=== PATIENT | female | born 1985 | race Caucasian/White ===

== ENCOUNTER 2022-05-23 19:37 | Emergency (ER) | payer MEDICAID, SELFPAY ==
[2022-05-23 19:53] VITALS: BP 119/71; PULSE 80; RESP 18; TEMP 36.7; O2SAT 99; BMI 22.4
--- NOTE | 2022-05-23 20:04 | XR_ITS ---
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 Views: 3 or more views. COMPARISON: No relevant prior studies available. FINDINGS: Bones/joints: Small plantar calcaneal spur. No fractures. No blastic or lytic lesions. The ankle mortise joint is well maintained. No joint effusion. The visualized hindfoot and midfoot are grossly well aligned. No hindfoot coalition. Soft tissues: No periostitis or osteolysis. Mild circumferential soft tissue swelling around the ankle. No radiopaque foreign bodies. IMPRESSION: 1. No osseous injuries. 2. Mild circumferential soft tissue swelling around the ankle. 3. Small plantar calcaneal spur.
--- NOTE | 2022-05-23 20:04 | XR_ITS ---
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 Views: 3 or more views. COMPARISON: CR XR ANKLE LT MIN 3V 05/23/2022 8:07 PM FINDINGS: Bones/joints: Normal variant bipartite medial sesamoid at the 1st MTP joint incidentally noted. Small plantar calcaneal spur. No fractures. Normal alignment is maintained in the midfoot, hindfoot, and forefoot. Joint spaces are well-maintained. No blastic or lytic lesions. No gross ankle joint effusion. No hindfoot coalition. Soft tissues: No periostitis or osteolysis. No gross soft tissue abnormalities. No radiopaque foreign bodies. Other findings: Normal mineralization. IMPRESSION: No acute findings.
--- NOTE | 2022-05-23 20:12 | HMH.EDLOEX ---
ED Disposition Clinical Impression: Injury of foot Qualifiers: Encounter type: initial encounter Laterality: left Qualified Code(s): S99.922A - Unspecified injury of left foot, initial encounter Disposition: Home, Self-Care Condition on Discharge: Good Instructions: DI for Foot Pain Additional Instructions: ice and see pcp for follow up Referrals: Provider,Referral, [Primary Care Provider] - - Critical Care Critical Care Time: No Attestation: On 05/23/22, the high probability of a clinically significant, sudden or life threatening deterioration of the following system(s) required my full and direct attention, intervention and personal management. The time I documented below is in addition to time spent performing reported procedures but includes the following listed in this critical care notation. Medical Decision Making - Medical Records Medical records reviewed: Yes: I reviewed the patient's medical records. - Rell Inquiry Pt receiving controlled substance: No Vital Signs: 05/23/22 19:53 Temperature 98.0 F Temperature Source Oral Pulse Rate [Apical] 80 Respiratory Rate 18 Blood Pressure [Right Arm] 119/71 Blood Pressure Mean [Right Arm] 87 Blood Pressure Source [Right Arm] Automatic Cuff Blood Pressure Position [Right Arm] Sitting 02 Sat by Pulse Oximetry 99 Oxygen Delivery Method Room Air - Lab Data Lab results reviewed: Yes: I reviewed the patient's lab results. Lab Results 05/23/22 20:00: Urine HCG, Qual Negative - Radiology Data #1 Image(s): Ankle, Foot/Toes Image Reviewed: Yes I have reviewed radiologist's interpretation Preliminary Findings: No Fracture Seen Medical Decision Narrative: acute lt foot injury w/o fx Lower Extremity Injury HPI - General Chief Complaint: Extremity Injury, Lower Stated Complaint: ao08/09@1800@home injured L Thumb Time Seen by Provider: 05/23/22 20:12 Mode of Arrival: Ambulatory Source of Information: Patient, Parent(s), Medical Record Limitations: No Limitations Description of Symptoms (Recalled from ER Triage Doc. by RN): Pt states that yest she hit her left baby toe on a suitcase and has noticed bruising up the side of her foot. States that she broke her toe two years ago. Patient ambulated independently without any limping upon entering ER. - History of Present Illness HPI Narrative: acute injury lt foot - at home complaint: foot injury Onset (ago): hour(s) Injury: Left: foot Type of Injury: blunt Place: home Severity: moderate Context: direct blow Associated symptoms: able to partially bear weight Other symptoms: none - Related Data Home Medications Medication Instructions Recorded Confirmed Gabapentin 800 mg PO QID 05/23/22 05/23/22 OXcarbazepine [Oxcarbazepine] 900 mg PO BID 05/23/22 05/23/22 Oxycodone HCl/Acetaminophen 1 each PO BID 05/23/22 05/23/22 [Percocet 7.5-325 mg Tablet] Rizatriptan Benzoate [Rizatriptan] 10 mg PO BID 05/23/22 05/23/22 Topiramate [Topamax 100mg tablet] 100 mg PO DAILY 05/23/22 05/23/22 Allergies Allergy/AdvReac Type Severity Reaction Status Date / Time No Known Allergies Allergy Verified 05/23/22 19:57 [facility] History - Hepatitis A Screen Attestation statement:: This patient has been screened for Hepatitis A risk factors. I have reviewed the patient's past medical history: Yes ROS Obtained: Yes All systems reviewed & no additional complaints - Constitutional Constitutional: Denies fever(s) - Eyes Eyes: Denies change in vision - ENT Ears, Nose, Mouth, and Throat: Denies sore throat - Cardiovascular Cardiovascular: Denies chest pain - Respiratory Respiratory: Denies shortness of breath - Gastrointestinal Gastrointestingal: Denies: abdominal pain - Genitourinary Female Genitourinary: Denies abnormal vaginal bleeding - Musculoskeletal Musculoskeletal: Reports as per HPI, Reports joint pain, Reports joint swelling, Reports limited range of motion
[2022-05-23 20:37] LABS: Urine Pregnancy, HCG Qual. Negative (Negative)
[2022-05-23 21:00] VITALS: BP 118/77; PULSE 82; RESP 20; TEMP 36.7; O2SAT 97
== END 2022-05-23 21:01 | disposition home or self-care (01) ==
PROVIDERS: Emergency Provider Emergency Medicine
DX: S99.922A Unspecified injury of left foot, initial encounter (principal); W22.8XXA Striking against or struck by other objects, initial encounter
CPT/HCPCS: 73610; 73630; 81025; 99283

== ENCOUNTER 2023-04-10 13:08 | Emergency (ER) | payer SELFPAY ==
[2023-04-10 13:09] VITALS: BP 106/60; PULSE 80; RESP 16; TEMP 36.6; O2SAT 97; BMI 18.6
--- NOTE | 2023-04-10 13:49 | HMH.EDGENADL ---
Discharge Plan Disposition Patient Disposition: Home, Self-Care Condition: Fair Prescriptions Prescriptions: New Afrin (oxymetazoline) 0.05 % mist 2 spray intranasal BID 3 Days Qty: 15 0RF azithromycin 500 mg tablet See Rx Instructions .ROUTE .COMPLEX Qty: 6 0RF Rx Instructions: For 250 mg dose pack: take 500 mg today (day 1), then 250 mg for 4 days (days 2-5) No Action rizatriptan 10 MG tablet 10 mg PO BID gabapentin 800 MG tablet 800 mg PO QID oxcarbazepine 600 MG tablet 900 mg PO BID oxycodone-acetaminophen 1 EACH tablet 1 each PO BID topiramate 100 MG tablet 100 mg PO DAILY Referrals Follow up/Referrals: Provider,Referral, MD [Primary Care Provider] - 7-14 days Clinical Impressions Clinical Impression: Laryngitis Instructions Patient Instructions: DI for Acute Bronchitis Discharge ED Provider: Shravan Bueno General Adult HPI General Chief complaint: Upper Respiratory Infection Stated complaint: Cough, headache, chest congestion Time Seen by Provider: 04/10/23 13:48 History of Present Illness HPI narrative: The patient presents with 6-day history of cough, hoarse voice, and ear pain patient reports this is similar to her prior bronchitis. complaint: Cough, hoarse voice Onset (ago): day(s) (6) Related Data Home Medications Medication Instructions Recorded Confirmed gabapentin 800 mg tablet 800 mg PO QID Pain 05/23/22 05/23/22 oxcarbazepine 600 mg tablet 900 mg PO BID seizures 05/23/22 05/23/22 oxycodone-acetaminophen 7.5 mg-325 1 each PO BID bladder lining 05/23/22 05/23/22 mg tablet rizatriptan 10 mg tablet 10 mg PO BID migraines 05/23/22 05/23/22 topiramate 100 mg tablet 100 mg PO DAILY migraines 05/23/22 05/23/22 Previous Rx's Medication Instructions Recorded azithromycin 500 mg tablet See Rx Instructions PO .COMPLEX #6 04/10/23 tabs oxymetazoline 0.05 % nasal mist 2 spray intranasal BID 3 days #15 04/10/23 (Afrin (oxymetazoline)) mL Allergies Allergy/AdvReac Type Severity Reaction Status Date / Time No Known Allergies Allergy Verified 05/23/22 19:57 [facility] Disclaimer: The information contained in this section may have been updated after the patient was seen, as this information can be updated by other users. Social History Smoking Status: Never smoker alcohol intake: former current occupational status: other Travel in the last 8 weeks: None ROS Obtained: Yes Systems reviewed as appropriate & no additional complaints except as documented ENT Ears, Nose, Mouth, and Throat: Reports change in voice and Reports nasal congestion Respiratory Respiratory: Reports chest congestion and Reports cough Physical Exam General General appearance: alert and in no apparent distress Head Head exam: atraumatic and normocephalic Eye Eye exam: Present EOMI ENT ENT exam: Present normal oropharynx, mucous membranes dry, TM's normal bilaterally and normal external ear exam Neck Neck exam: Present normal inspection and full ROM Respiratory Respiratory exam: Present normal lung sounds bilaterally; Absent respiratory distress Cardiovascular Cardiovascular exam: Present regular rate and normal rhythm Abdominal Exam Abdominal exam: Present soft Neurological Exam Neurological exam: Present alert and oriented X3 Medical Decision Making Rell Inquiry Pt receiving controlled substance: No Vital Signs: 04/10/23 13:09 04/10/23 14:20 Temperature 97.9 F 97.9 F Temperature Source Oral Pulse Rate 80 Pulse Rate [Left Radial] 80 Respiratory Rate 16 16 Blood Pressure 106/60 L Blood Pressure [Right Arm] 106/60 L Blood Pressure Mean [Right Arm] 75 Blood Pressure Source [Right Arm] Automatic Cuff Blood Pressure Position [Right Arm] Sitting 02 Sat by Pulse Oximetry 97 Oxygen Delivery Method Room Air Critical Care Time Critical Care Time Critical Care Time: No Attestation: On , the high proba
[2023-04-10 14:20] VITALS: BP 106/60; PULSE 80; RESP 16; TEMP 36.6
== END 2023-04-10 14:21 | disposition home or self-care (01) ==
PROVIDERS: Emergency Provider Emergency Medicine
DX: J04.0 Acute laryngitis (principal); R51.9 Headache, unspecified; R05.9 Cough, unspecified
CPT/HCPCS: 99283; 99284

== ENCOUNTER 2025-05-28 20:21 | Emergency (ER) | payer MEDICAID, SELFPAY ==
[2025-05-28] VITALS (16 sets, daily range): BP systolic 92–113; BP diastolic 44–71; PULSE 45–86; RESP 18; O2SAT 99–100; BMI 16.9
--- OUTSIDE RECORDS SUMMARY | 2025-05-28 20:27 | XMS_ITS | Continuity of Care Document ---
Author Organization [facility]. If a dditional information is needed, contact Health Information Management at [phone] Address [address] [place] [address] Phone Care Team Providers Care Printing Roller Handler Name Role Phone Unavailable Unavailable Unavailable Unavailable Unavailable Unavailable Unavailable Unavailable Unavailable Unavailable Unavailable Unavailable Unavailable Unavailable Unavailable Problems Closed injury of head Onset:25-Jan-2023 Bryson Wright DO Status:Acute Contusion of knee Onset:25-Jan-2023 Bryson Wright DO Status:Acute Allergies and Adverse Reactions No Allergy Information Avail able(Allergy) Onset: 25-Jan-2023 Medications ibuprofen 600 MG Oral Tablet ;600 MG ORAL Q6H Start:25-Jan-2023 Comments:600 mg PO Q6H As Needed for Pain Encounters pre-admission 05-Jun-2022 12:13 MONTRELL LEIGH (Attending) Adrian Discharge Disposition:Left against medic al advice or discontinued care
--- OUTSIDE RECORDS SUMMARY | 2025-05-28 20:28 | XMS_ITS | Encounter Summary ---
Author Organization [employer] ([place], [place], [place], [place]) Address [address] [place] [address] Care Team Providers Care General Milling Superintendent Name Role Phone Unavailable Primary Care Provider Unavailabl e Encounter Details Date Type Department Care Team (Late st Contact Info) Description 08/26/2020 Transcribed Document [facility] [place] [facility] [place] [address] ProviderTamra MD [address], [place] [address] Social History Tobacco Use Types Packs/Day Years Used Date Smoking Tobacco: Never Assessed Comments Unknown Sex and Gender Information Value Date Recorded Sex Assigned at Not on file Legal Sex Female 5:43 PM CDT Gender Identity Not on file Sexual Orientation Not on file documented as of this encounter Miscellaneous Notes * Cerner Conversion Note - Historical ProviderMD - 08/26/2020 4:10 PM SUMMER BABYSITTER Patient: HARRIET GONZALEZ Age: 34 Years Sex: Female : 1985 FOLLOWUP DATE OF SERVICE: 08/10/2020 CHIEF COMPLAINT: Pain. HISTORY OF PRESENT ILLNESS: The patient is a 34-year-old female who returns to the clinic for followup on her three-year history of abdominal pain. She states she has been out of pain medication x 3 days. She also states I have no memory . She rates her pain as 4/10 on the pain scale. She gets 100% relief with her current medication. She has increased pain with nothing, it is consistent. Fall risk information sheet provided. HISTORY: Allergies: Ciprofloxacin. Social History: Marital status: . Current work status: Not answered. Current tobacco use: Denies. Illicit drug use: Denies. Alcohol use: Denies. Caffeine use: Denies. Past Medical History: Migraine headaches. Seizures. Past Surgical History: Knee. Ovaries. Past Family History: Migraine headaches. Seizures. REVIEW OF SYSTEMS: The patient's ten system Review of Systems was not filled in. VITAL SIGNS: Vital signs are reviewed. BP 105/73, heart rate 70, respiratory rate 20, O2 SATs 97%, height 5'3 , weight 156 lb. PHYSICAL EXAMINATION: Constitutional: Freely conversant and in no acute distress. Integumentary: Deferred. HEENT: Deferred. Neck: Deferred. Chest and Lung: Deferred. Cardiovascular: Deferred. Abdomen: Deferred. Peripheral Vascular: Deferred Neurologic: Deferred. Neuropsychiatric: Alert and oriented x3. Normal mood and affect. She scored a 0 on her depression questionnaire. Musculoskeletal: Deferred. MEDICAL DECISION MAKING: RAY is reviewed and is appropriate. Patient???s medications are reviewed. See list in patient???s file. The patient received a urine tox screen today, however, she has not filled since 07/01/2020 so she has been out of her medicine and it is hard for her to get off work to get here because she started a new job so she states there will not be any of her medicine in her urine. ASSESSMENT: Stable. 1. Chronic pain syndrome. 2. Interstitial cystitis. 3. Pelvic floor pain disorder. CURRENT PLAN: I am going to continue Ms. Gonzalez on her current medication of [place] 7.5 mg q.12h. She denies any side-effects. Another physician writes for Gabapentin 800 mg q.h.s. She is in agreement with the above plan. We will see her back in followup in two months. Farrah Ca M.D. Jorge documented in this encounter Plan of Treatment Not on file documented as of this encounter Visit Diagnoses Not on filedocumented in this encounter
--- OUTSIDE RECORDS SUMMARY | 2025-05-28 20:28 | XMS_ITS | Encounter Summary ---
Author Organization [email or web address] ([place], [place], [place], [place]) Address [address] [place] [address] Care Team Providers Care Button Broacher Name Role Phone Unavailable Primary Care Provider Unavailabl e Encounter Details Date Type Department Care Team (Late st Contact Info) Description 12/22/2020 Transcribed Document [facility] [place] [facility] [place] [address] ProviderTamra MD [address] [place], [place] [id number] Social History Tobacco Use Types Packs/Day Years Used Date Smoking Tobacco: Never Assessed Comments Unknown Sex and Gender Information Value Date Recorded Sex Assigned at Not on file Legal Sex Female 5:43 PM CDT Gender Identity Not on file Sexual Orientation Not on file documented as of this encounter Miscellaneous Notes * Cerner Conversion Note - Tamra ProviderMD - 12/22/2020 2:51 PM BILLET RECORDER Patient: HARRIET GONZALEZ Age: 35 Years Sex: Female : 1985 FOLLOW-UP DATE OF SERVICE: 12/02/2020 CHIEF COMPLAINT: Abdominal pain, pelvic pain. HISTORY OF PRESENT ILLNESS: The patient is a 35-year-old female who returns to the clinic today with a three-year history significant for interstitial cystitis and pelvic floor pain. She describes her pain level today as 0/10 on the numerical pain scale rating. Her pain is typically aggravated when she does not take her medications. The patient states that she is getting 100% pain relief at this time with the use of [place] 7.5/325 mg that she is taking twice daily dosing. Nursing intake is reviewed and noted on today's visit this individual has a BP 105/61, heart rate 78, respiratory rate 16, O2 SATs 97% on room air, height 5'3 , weight 156 lb. HISTORY: Allergies: Ciprofloxacin. Social History: Marital status: . Current work status: The patient does not report occupation at this time. Current tobacco use: Denies. Illicit drug use: Denies. Alcohol use: Denies. Caffeine use: Denies. Past Medical History: Migraine headaches. Seizure activity. Past Surgical History: Arthroscopic knee surgery. Past Family History: Migraine headaches. Seizure activity. REVIEW OF SYSTEMS: The patient's ten system Review of Systems was reviewed and on today's visit this individual has complaints of the following: General: Negative. Respiratory: Negative. Neurological: Headaches, seizures. Gastrointestinal: Negative. Musculoskeletal: Negative. Cardiovascular: Negative. Psychiatric: Negative. HEENT: Negative. Endocrine: Negative. Hematology: Negative. Skin: Negative. Genitourinary: Negative. PHYSICAL EXAMINATION: Constitutional: Conversant and well-nourished. Vital signs were reviewed today. Integumentary: Deferred. HEENT: Deferred. Neck: Deferred. Chest and Lung: Deferred. Cardiovascular: Deferred. Abdomen: Deferred. Peripheral Vascular: Deferred. Neurologic: Deferred. Psychiatric: The patient is alert and oriented to self, time and place today. The patient has a normal mood and affect at today's visit and there is no evidence of depression on the depression questionnaire that was completed today. Musculoskeletal: Deferred. ASSESSMENT: 1. Chronic pain syndrome. 2. Interstitial cystitis. 3. Pelvic floor pain. CURRENT PLAN: I am going to continue Ms. Gonzalez on her current medication regimen from our facility at this time. Her RAY report was appropriate upon review today. I am going to write for a Medrol Dosepak 4 mg to be used as directed for any acute flares that she may have with her pain during the inclement weather. The patient has an understanding and agrees with the above plans. DARLIN Foster/manuel documented in this encounter Plan of Treatment Not on file documented as of this encounter Visit Diagnoses Not on filedocumented in this encounter
--- OUTSIDE RECORDS SUMMARY | 2025-05-28 20:28 | XMS_ITS | Clinical Summary ---
Author Organization [employer] ([place], [place], [place], [place]) Address [address] [place] [address] Care Team Providers Care Glass Block Bender Name Role Phone Unavailable Primary Care Provider Unavailabl e Social History Tobacco Use Types Packs/Day Years Used Date Smoking Tobacco: Never Assessed Comments Unknown Sex and Gender Information Value Date Recorded Sex Assigned at Not on file Legal Sex Female 5:43 PM CDT Gender Identity Not on file Sexual Orientation Not on file Plan of Treatment Not on file
--- OUTSIDE RECORDS SUMMARY | 2025-05-28 20:28 | XMS_ITS | Referral Summary ---
Author Organization [employer] ([place], [place], [place], [place]) Address [address] [place] [address] Care Team Providers Care Tobacco Baler Name Role Phone Unavailable Primary Care Provider [...]
--- OUTSIDE RECORDS SUMMARY | 2025-05-28 20:28 | XMS_ITS | Clinical Summary ---
Author Organization [facility] Address [address] [place] [address] Care Team Providers Care Lumber Tailer Name Role Phone Gila Tobias APRN Primary Care Provider [phone] Allergies No known active allergies Medications HYDROcodone-acet aminophen (NORCO) 7.5-325 MG per tablet Take 1 tablet by mouth Every 12 (Twelve) Hours As Needed. 04/24/2024 Active gabapentin (NEURONTIN) 800 MG tablet Take 1 tablet by mouth 2 (Two) Times a Day. Active traZODone (DESYREL) 50 MG tablet Take 1 tablet by mouth Every Night. Active topiramate (TOPAMAX) 200 MG tablet Take 1 tablet by mouth Daily. Active rizatriptan (MAXALT) 10 MG tablet Take 1 tablet by mouth. Active Cholecalciferol (Vitamin D3) 50 MCG (2000 UT) capsule 05/12/2024 Active OXcarbazepine (Trileptal) 600 MG tablet Take 1 tablet by mouth 2 (Two) Times a Day. Active norethindrone (AYGESTIN) 5 MG tablet 06/03/2024 Active Active Problems No known active problems Social History Tobacco Use Types Packs/Day Years Used Date Smoking Tobacco: Never Smokeless Tobacco: Never Alcohol Use Standard Drinks/Week Comments Not Currently 0 (1 standard drink = 0.6 oz pur e alcohol) Abuse Screen Answer Date Recorded Unsafe at Home or Work/School Not on file Feels Threatened by Someone? Not on file 06/2023 Does Anyone Keep You from Co ntacting Others or Doint Things Outside the Home? Not on file 07/23/2023 Physical Sign of Abuse Present Not on file 1 Housing Stability Answer Date Recorded Current Living Arrangements Not on file 06/2023 Potentially Unsafe Housing Conditions Not on len e 07/23/2023 Family and Community Support Answer Delano e Recorded Help with Day-to-Day Activities Not on file 07/23/2023 Lonely or Isolated Not on file 07/23/2023 Employment Answer Date Recorded Do you want help finding or keeping work or a flory b? Not on file 07/23/2023 Disabilities Answer Date Recorded Concentrating, Remembering, or Making Decisions Difficulty Not on file 07/23/2023 Doing Errands Independently Difficulty Not on fi le 07/23/2023 Education Answer Date Recorded Help with school or training? Not on file Preferred Language Not on file 07/23/2023 Comments Unknown Sex and Gender Information Value Date Recorded Sex Assigned at Not on file Legal Sex Female 12:43 PM EDT Gender Identity Not on file Sexual Orientation Not on file Last Filed Vital Signs Vital Sign Reading Time Taken Comments Blood Pressure 120/78 06/09/2024 11:45 AM EDT Pulse - - Temperature - - Respiratory Rate - - Oxygen Saturation - - Inhaled Oxygen Concentration - - Weight 52.2 kg (115 lb 1.3 oz) 06/09/2024 11:45 AM EDT Height 160 cm (5' 2.99 ) 06/09/2024 11:45 AM EDT Body Mass Index 20.39 06/09/2024 11:45 AM EDT Plan of Treatment Health Maintenance Due Date Last Done Comments Annual Gynecologic Pelvic an d Breast Exam 1985 TDAP/TD VACCINES (1 - Tdap) 2003 PAP SMEAR 2005 ANNUAL PHYSICAL 03/14/2024 HEPATITIS C SCREENING 03/14/2024 COVID-19 Vaccine ( - 2023-2 5 season) 2024 MAMMOGRAM 2024 INFLUENZA VACCINE 07/15/2025 Pneumococcal Vaccine 0-49 Aged Out No longer eligible based on patient's age to complete this topic Insurance [employer] Care Teams Lumber Tailer Relationship Specialty Start Date End Date Gila Tobias APRN [address] [id number] PCP - General Nurse Practitioner 06/09/24
--- OUTSIDE RECORDS SUMMARY | 2025-05-28 20:28 | XMS_ITS | Encounter Summary ---
Author Organization [employer] ([place], [place], [place], [place]) Address [address] [place] [address] Care Team Providers Care Life Science Research Assistant Name Role Phone Unavailable Primary Care Provider Unavailabl e Encounter Details Date Type Department Care Team (Late st Contact Info) Description 06/14/2020 Transcribed Document [facility] [place] Family Medicine [facility] [place] [address] ProviderTamra MD [address], [place] [address] Social History Tobacco Use Types Packs/Day Years Used Date Smoking Tobacco: Never Assessed Comments Unknown Sex and Gender Information Value Date Recorded Sex Assigned at Not on file Legal Sex Female 5:43 PM CDT Gender Identity Not on file Sexual Orientation Not on file documented as of this encounter Miscellaneous Notes * Cerner Conversion Note - Tamra ProviderMD - 06/14/2020 10:14 AM CDT Patient: HARRIET GONZALEZ Age: 34 Years Sex: Female : 1985 FOLLOW-UP Date of Service: 06/02/2020 CHIEF COMPLAINT: Pelvic pain. HISTORY OF PRESENT ILLNESS: The patient is a 34 y/o female who returns to the Clinic today with a 3 year history significant for pelvic floor disorder pain and interstitial cystitis. She describes her pain as being worse with prolonged sitting and standing, especially at work. She reports relief with the use of her medicines from our facility at this time. She describes her pain level today as being a 0/10 on the numerical pain scale rating. She is getting 100% pain relief at this time with [place] 7.5/325 mg twice daily dosing. Nursing intake was reviewed and noted on today's visit. VITAL SIGNS: Vital signs are reviewed today. Height 5???3?? , weight 160 lbs. HISTORY: Allergies to medications: Ciprofloxacin. Social History: Marital status: She is . Current work status: She works at a stand-up [employer] job. Illicit drug use: Denies. Current tobacco use: Denies. Alcohol use: Denies. Caffeine use: Denies. Past Medical History: Migraine headaches. Strokes. Past Surgical History: Arthroscopic knee surgery. Past Family History: Migraine headaches. Seizure activity. REVIEW OF SYSTEMS: The patient's ten system review of systems was reviewed and on today's visit she reported nothing. PHYSICAL EXAMINATION: Constitutional: The patient is conversant and well-nourished. Vital signs are reviewed today. Integumentary: Deferred. HEENT: Deferred. Neck: Deferred. Chest and Lung: Deferred. Cardiovascular: Deferred. Abdomen: Deferred. Peripheral Vascular: Deferred Neurologic: Deferred. Musculoskeletal: Deferred. Psychiatric: The patient is alert and oriented to self, time, and place today. The patient has a normal mood and affect on today's visit and there is no evidence of depression on the depression questionnaire that was completed today. DIAGNOSTIC STUDIES: Not present. MEDICAL DECISION MAKING: Stable. ASSESSMENT: 1. Chronic pain syndrome. 2. Interstitial cystitis. 3. Pelvic floor pain disorder. PROCEDURE/TEST ORDERED: Not present. CURRENT PLAN: I am going to continue this individual on her current medication regimen from our facility at this time. RAY report was appropriate upon review today. We will see the patient back in the Clinic in 2 months for a follow-up appointment. The patient has an understanding and agrees with the above plans. DARLIN Foster/leanna documented in this encounter Plan of Treatment Not on file documented as of this encounter Visit Diagnoses Not on filedocumented in this encounter
--- OUTSIDE RECORDS SUMMARY | 2025-05-28 20:28 | XMS_ITS | Encounter Summary ---
Author Organization [employer] ([place], [place], [place], [place]) Address [address] [place] [address] Care Team Providers Care Relief Operator Name Role Phone Unavailable Primary Care Provider Unavailabl e Encounter Details Date Type Department Care Team (Late st Contact Info) Description 11/26/2019 Transcribed Document [facility] [place] Family Medicine [facility] [place] [address] ProviderTamra MD [address], [place] [id number] Social History Tobacco Use Types Packs/Day Years Used Date Smoking Tobacco: Never Assessed Comments Unknown Sex and Gender Information Value Date Recorded Sex Assigned at Not on file Legal Sex Female 5:43 PM CDT Gender Identity Not on file Sexual Orientation Not on file documented as of this encounter Miscellaneous Notes * Cerner Conversion Note - Historical ProviderMD - 11/26/2019 11:46 AM SPRAY [employer]W Patient: HARRIET PHILLIPS Age: 34 Years Sex: Female : 1985 INITIAL PATIENT EVALUATION DATE OF SERVICE: 11/20/2019 CHIEF COMPLAINT: Chronic lower abdominal pain. HISTORY OF PRESENT ILLNESS: Ms. Phillips is a 33-year-old lady who reports a 3-year diagnosis of interstitial cystitis. The patient reports that she has been under the care of Dr. Joel Renteria. They have done bladder distentions, bladder washouts and she has tried some immunologics and biologics without much effect. She is reporting a high level of pain. The patient has recently been on Neurontin 100 mg twice a day which she says really has not helped a whole lot with her pain. She says Dr. Renteria has told her he really does not have a whole lot more to offer her at this point. She reports lower abdominal pain with bladder spasms that she would rate at least a 2-3 out of 10 on most days but says it does get worse. The patient states the pain interferes with work and ADLs. She also reports that she is not sleeping well because of the pain and frequent urination. She is on anticholinergics to assist with some of the urinary issues but is still having a fair amount of pain. HISTORY: Allergies: Cipro, Control Pills. Past Medical History: The past medical history is reviewed with the patient. It is mostly noncontributory apart from migraine headaches and previous history of seizures. Past Family History: Migraine headaches. Seizures. Depression. Social History: Marital status: . 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 Current tobacco use: Denies. Illicit drug use: Denies. Reviewing her RAY report, she has had short-term opioid therapy by Dr. Renteria and has recently been on Gabapentin by way of Dr. Winn. Alcohol use: Denies. REVIEW OF SYSTEMS: The patient's ten system Review of Systems was reviewed. General: Negative. Respiratory: Negative. Neurological: Headaches, seizures. Gastrointestinal: Negative. Musculoskeletal: Negative. Cardiovascular: Negative. Psychiatric: Negative. HEENT: Negative. Endocrine: Negative. Hematology: Negative. PHYSICAL EXAMINATION: Vital signs: Blood pressure is 108/71, heart rate is 84. The patient is 5'3 and weighs 160 lb. Constitutional: The patient is conversant in no acute distress. Psychiatric: The patient is alert and oriented. Normal mood and affect are noted. HEENT: Normocephalic. Pupils are equally round and nares are patent. Neck: The neck is soft, supple and nontender. Lungs: The lungs are clear to auscultation with no rales or rhonchi. Heart: The heart is regular with no murmurs, gallops or rubs. Abdomen: The abdomen has got a little bit of tenderness through the suprapubic region. Skin: Normal turgor with no lesions. Musculoskeletal: The patient transitions from walking, sitting and standing without difficulty. IMPRESSION: 1. Chronic lower abdominal pain with interstitial cystitis. DISCUSSION: Ms. Phillips and I have discussed things at length. I have reviewed Dr. Renteria's notes. Again, this does not seem to be an issue that is resolving with conservative measures. She has tried dietary modification. She is currently using Oxybutynin without a whole lot of relief. She is still have a significant level of pain. It does not appear that this is going to be anything that is going to resolve anytime soon and I have told her we may need to consider advanced treatment options. I think in the long-term she might benefit from a targeted intrathecal drug delivery drug system and I have given her information to look into. For now, though, she is going to continue with the Oxybutynin and continue with the Gabapentin through Dr. Winn. I am going to write her a prescription for [place] 7.5 mg that she will utilize sparingly. I am going to give her 45 for the month. We will see her back in a four-week followup. Again, long-term treatment option is probably going to involve targeted intrathecal drug delivery. This would involve an initial trial period with monotherapy and then we may add a second drug through permanent implantation. Gera Stokes II, M.D. ANDRZEJ/yessenia documented in this encounter Plan of Treatment Not on file documented as of this encounter Visit Diagnoses Not on filedocumented in this encounter
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
--- OUTSIDE RECORDS SUMMARY | 2025-05-28 20:28 | XMS_ITS | Encounter Summary ---
Author Organization [employer] ([place], [place], [place], [place]) Address [address] [place] [address] Care Team Providers Care Cash Application Representative Name Role Phone Unavailable Primary Care Provider Unavailabl e Encounter Details Date Type Department Care Team (Late st Contact Info) Description 12/28/2019 Transcribed Document [facility] [place] [facility] [place] [address] ProviderTamra MD [address], [place] [address] Social History Tobacco Use Types Packs/Day Years Used Date Smoking Tobacco: Never Assessed Comments Unknown Sex and Gender Information Value Date Recorded Sex Assigned at Not on file Legal Sex Female 5:43 PM CDT Gender Identity Not on file Sexual Orientation Not on file documented as of this encounter Miscellaneous Notes * Cerner Conversion Note - Tamra ProviderMD - 12/28/2019 10:20 AM CDT Patient: HARRIET PHILLIPS Age: 34 Years Sex: Female : 1985 DATE OF SERVICE: 12/18/2019. CHIEF COMPLAINT: Lower abdominal pain. HISTORY OF PRESENT ILLNESS: The patient is a 34 year old female who returns to the clinic today for a second visit after being seen by Dr. Stokes on her initial evaluation. She has a history significant for pelvic pain secondary to interstitial cystitis. She has been dealing with the pain for close to three years. Her pain is worse with lifting, bending at the waist, and lifting heavy objects that is very aggravating for her. She states that the pain medication is providing 100% pain relief for her at this time. The patient states that the pain level today is 0/10 on the Numerical Pain Scale Rating. She has been utilizing [place] 7.5/325 mg. b.i.d. Nursing intake was reviewed. On today's visit this individual is currently 5'3 and weighs 160 lbs. HISTORY: ALLERGIES TO MEDICATION: CIPROFLOXACIN, CONTROL PILLS . SOCIAL HISTORY: Marital status: . Current work status: Works at the [employer]. Current tobacco use: Denied. Illicit drug use: Denied. Alcohol use: Denied. Caffeine use: Not reported. PAST MEDICAL HISTORY: Migraine headaches. Seizure activity. PAST SURGICAL HISTORY: Arthroscopic knee surgery. PAST FAMILY HISTORY: Migraine headaches. Seizure activity. REVIEW OF SYSTEMS: The patient's Ten System Review of Systems was reviewed and on today's visit this individual complains of the following: General: Negative. Respiratory: Negative. Neurological: Seizures. Gastrointestinal: Negative. Musculoskeletal: Negative. Cardiovascular: Negative. Psychiatric: Negative. HEENT: Negative. Endocrine: Negative. Hematology: Negative. Skin: Negative. Genitourinary: Negative. All other systems reviewed were found to be negative. PHYSICAL EXAMINATION: Vital signs reviewed today. Constitutional: Conversant, well-nourished. General: Deferred. Integumentary: Deferred. HEENT: Deferred. Neck: Deferred. Chest and Lung: Deferred. Cardiovascular: Deferred. Abdomen: Deferred. Peripheral Vascular: Deferred. Neurologic: Deferred. Musculoskeletal: Deferred. Psychiatric: The patient is alert and oriented to self, time, and place today. The patient has normal mood and affect at today's visit and there is no evidence of depression on the depression questionnaire completed today. Physical examination was deferred. DIAGNOSTIC STUDIES: Not present. MEDICAL DECISION MAKING: Stable. ASSESSMENT: 1. Chronic pain syndrome. 2. Interstitial cystitis. 3. Pelvic floor pain. PROCEDURE/TEST ORDERED: Not present. CURRENT PLAN: She appears to be stable with her medicines. I am going to continue this individual on her current medication regimen from our facility at this time. RAY report was appropriate upon review today. This individual is undergoing a urine Tox. screen today to confirm compliance with medication management from our facility. We are going to see the patient back in the clinic in two months for a follow-up appointment. Shon Valerio PA-C BR:zbigniew documented in this encounter Plan of Treatment Not on file documented as of this encounter Visit Diagnoses Not on filedocumented in this encounter
--- OUTSIDE RECORDS SUMMARY | 2025-05-28 20:28 | XMS_ITS | Encounter Summary ---
Author Organization [facility] ([place], [place], [place], [place]) Address [address] [place] [address] Care Team Providers Care Under Water Assistant Name Role Phone Unavailable Primary Care Provider Unavailabl e Encounter Details Date Type Department Care Team (Late st Contact Info) Description 03/04/2020 Transcribed Document [facility] [place] [facility] [place] [address] ProviderTamra MD [address], [place] [id number] Social History Tobacco Use Types Packs/Day Years Used Date Smoking Tobacco: Never Assessed Comments Unknown Sex and Gender Information Value Date Recorded Sex Assigned at Not on file Legal Sex Female 5:43 PM CDT Gender Identity Not on file Sexual Orientation Not on file documented as of this encounter Miscellaneous Notes * Cerner Conversion Note - Tamra ProviderMD - 03/04/2020 2:52 PM CDT Patient: HARRIET GONZALEZ Age: 34 Years Sex: Female : 1985 FOLLOW-UP Date of Service: 02/12/2020 CHIEF COMPLAINT: Pelvic pain. HISTORY OF PRESENT ILLNESS: This is a 34 y/o female being seen in follow-up in her third visit with us for a 3 year history of lower abdominal and pelvic pain secondary to interstitial cystitis. She describes her pain as constant and sharp. The pain is exacerbated with lifting, and reduced with medication.. She currently rates the pain as a 0/10 VAS, and she recently took her medication and reports a 100% reduction with medication. Medication list reviewed. Pertinent medications are noted to be Hydrocodone 7.5 mg 1 p.o. q 12 h. Nursing intake reviewed. Fall info sheet provided. HISTORY: Allergies: Cipro. Social History: Marital status: . 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 Illicit drug use: Denies. Alcohol use: Denies. Current tobacco use: Denies. Caffeine use: Denies. Past Medical History: Seizures Past Surgical History: Knee Ovaries Past Family History: Migraines Seizures REVIEW OF SYSTEMS: General: Negative. Respiratory: Negative. Neurological: Negative. Gastrointestinal: Abdominal pain. Last bowel movement 02/10. Musculoskeletal: Pelvic pain. Cardiovascular: Negative. Psychiatric: Negative. HEENT: Negative. Endocrine: Negative. Hematology: Negative. Skin: Negative. Genitourinary: Negative. VITAL SIGNS: Vital signs are reviewed. BP 114/71, heart rate 64, respiratory rate 16, O2 SATs 98% on room air, height 5???3?? , weight 160 lbs PHYSICAL EXAMINATION: Constitutional: Conversant, no acute distress, well-nourished. Integumentary: Deferred. HEENT: Normocephalic. Neck: Deferred. Chest and Lung: Deferred. Cardiovascular: Deferred. Abdomen: Deferred. Peripheral Vascular: Deferred Neurologic: Deferred. Musculoskeletal: Able to transition independently from walking, sitting, standing without overt difficulty. Psychiatric: Alert and oriented x 3. Denies suicidal ideation. Normal mood and affect. No signs of impairment. DIAGNOSTIC STUDIES: Not present MEDICAL DECISION MAKING: Stable. ASSESSMENT: 1. Chronic pain syndrome. 2. Interstitial cystitis. 3. Pelvic floor pain. PROCEDURE/TEST ORDERED: Not present. CURRENT PLAN: We will continue current medications. RAY reviewed. Questions answered to her satisfaction and she verbalized understanding. Return to the clinic in two months. CONNIE Amador/susan Electronically signed by Angie Christie Conversion Environmental Field Team Member Dulce at 01/30/2023 5:48 PM CDT documented in this encounter Plan of Treatment Not on file documented as of this encounter Visit Diagnoses Not on filedocumented in this encounter
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
[2025-05-28] MEDS: KETOROLAC 30MG/ML VIAL 30 MG IM (20:47)
[2025-05-28] MEDS: ACETAMINOPHEN 500MG TAB 1000 MG PO (20:47)
[2025-05-28] MEDS: METHOCARBAMOL 500MG TABLET 1000 MG PO (20:47)
[2025-05-28] MEDS: LIDOCAINE 5% TRANSDERMAL PATCH 1 EACH TD (20:47)
[2025-05-28 20:50] LABS: Hematocrit 36.1 % (37.0-47.0); Hemoglobin 12.1 g/dL (12.2-16.2); Immature Granulocytes % 0.1 %; Mean Corpuscular HGB Conc 33.5 g/dL (31.8-35.4); Mean Corpuscular Hemoglobin 30.9 pg (27.0-31.2); Mean Corpuscular Volume 92.1 fl (81-99); Nucleated Red Blood Cells % 0 %; Platelet Count 246 K/mm3 (142-424); Red Blood Count 3.92 M/mm3 (4.20-5.40); Red Cell Distribution Width-SD 46.2 fL; White Blood Count 7.2 K/mm3 (4.8-10.8)
--- NOTE | 2025-05-28 20:58 | ECG_ITS ---
APPROVED REPORT Exam: Resting ECG HR:47 bpm ECG Measurements Heart Rate 47 AXES AL 144 P 78 QRSd 94 QRS 83 QT 450 T 72 QTc 414 Conclusion SINUS BRADYCARDIA BORDERLINE ECG UNCONFIRMED REPORT Electronically signed by : RAJI BELTRAN, 05/29/2025 00:35:35
[2025-05-28 20:59] LABS: Microscopic, Urine URINE MICROSCOPIC (MICROSCOPIC)
[2025-05-28 21:13] LABS: Bilirubin,Urine Negative (Negative); Color,Urine YELLOW (Yellow); Glucose,Urine (UA) Negative (Negative); Ketones,Urine Negative (Negative); Leukocyte Esterase,Urine Negative (Negative); PH,Urine 7.0 (5.0-8.5); Protein,Urine Negative (Negative); Specific Gravity, Urine 1.015 (1.005-1.030); Urobilinogen,Urine 1.0 EU/dl (0.2)
--- NOTE | 2025-05-28 21:13 | ED_ITS ---
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 wo con Stat Cat Scan 05/28/25 20:35 Completed CBC w/Auto Diff [Complete Blood Count Auto Diff] Stat Lab 05/28/25 20:45 Completed CMP [Comprehensive Metabolic Panel] Stat Lab 05/28/25 20:45 Completed Lipase Stat Lab 05/28/25 20:45 Completed Trop I [Troponin I] Stat Lab 05/28/25 20:45 Completed Troponin I Q3H Lab 05/28/25 23:51 Completed UA [Urinalysis and Microscopic] Stat Lab 05/28/25 20:56 Completed Urine , HCG Qual. Stat Lab 05/28/25 20:56 Completed Urine Culture Stat Micro 05/28/25 20:56 Received Medical Decision Narrative: In summary patient is 39-year-old female past medical history of scrota above who presents emergency department for evaluation of left sided rib pain. Patient is hemodynamically stable nontoxic-appearing upon arrival, afebrile. It may be recrudescence of her chronic pain given her previous left-sided rib fractures. Differential includes pneumothorax, among others. Less likely urinary tract infection based on history and physical exam although urinalysis will be obtained. Initial inventions include multimodal pain control. Initial workup we conducted with EKG hematologic labs CT chest without IV contrast. No concern for pulmonary embolism based on history and physical exam. Initial hematologic labs reviewed by me and are nonactionable no significant leukocytosis no transfusable anemia no ALICIA or critical electrolyte abnormalities troponin undetectably low. Urinalysis interpreted by me and equivocal but given that patient does not have any significant dysuria treatment will be deferred at this time till culture results. CT imaging informally visualized by me no significant pneumothorax, no obviously displaced rib fractures. Formal CT read pending at time of transition of care to Dr. Darrion Maier, DO I assumed care of this patient. Patient CT PE showed no pulmonary embolism and showed no acute pathology. Was signed out to Dr. Almazan pending 2nd troponin. Norah DELACRUZ: I assumed care of the patient at the time of handoff from the prior provider. On reassessment patient erin hemodynamically stable and is sleeping comfortably. Reports some symptomatic improvement. Repeat troponin returned undetectably low. Given this patient was determined to be appropriate for discharge with outpatient management. I discharged her with lidocaine patch and Robaxin for pain control. Critical Care <Jonathan Williamson MD - Last Filed: 05/28/25 22:06> Critical Care Time Critical Care Time: No
[2025-05-28 21:14] LABS: Albumin Level 4.3 g/dl (3.5-5.0); Chloride 115 mmol/L (98-107); Potassium 3.3 mmoL/L (3.5-5.1); Sodium 143 mmol/L (136-145)
[2025-05-28 21:17] LABS: Alanine Aminotransferase 23 U/L (12-78); Albumin/Globulin Ratio 1.5 (1.1-1.8); Alkaline Phosphatase 57 U/L (38-126); Anion Gap 10.3 mEq/L (5-15); Aspartate Amino Transferase 35 U/L (14-36); Bilirubin,Total 0.5 mg/dl (0.2-1.3); Blood Urea Nitrogen 10 mg/dl (7-17); Calcium 8.8 mg/dl (8.4-10.2); Carbon Dioxide 21 mmol/L (22.0-30.0); Creatinine Clearance Estimated 64 mL/min (50-200); Creatinine,Serum 0.80 mg/dl (0.52-1.04); Estimated Glomerular Filt Rate 79 ml/min (>60); GFR (African American) 96 ML/MIN (>60); Globulin 2.9 g/dL (1.3-3.2); Glucose 118 mg/dl (74-100); Total Protein,Serum 7.2 g/dl (6.3-8.2)
[2025-05-28 21:18] LABS: Lipase 86 U/L (23-300)
[2025-05-28 21:30] LABS: Troponin I < 0.01 ng/ml (0.00-0.034)
[2025-05-28 21:30] LABS: Urine Pregnancy, HCG Qual. Negative (Negative)
[2025-05-28 21:36] LABS: Amorphous Sediment,Urine 2+ /lpf; Bacteria,Urine 2+ /lpf
[2025-05-29 00:36] LABS: Troponin I < 0.01 ng/ml (0.00-0.034)
[2025-05-29 00:53] VITALS: BP 96/86; PULSE 64; RESP 16; TEMP 36.7; O2SAT 100
== END 2025-05-29 00:53 | disposition home or self-care (01) ==
PROVIDERS: Emergency Medicine; Emergency Provider Emergency Medicine
DX: R07.81 Pleurodynia (principal); R00.1 Bradycardia, unspecified; X50.3XXA Overexertion from repetitive movements, initial encounter
CPT/HCPCS: 71250; 80053; 81001; 81025; 83690; 84484; 85025; 87086; 93005; 96372; 99284; J1885

== ENCOUNTER 2025-06-10 16:27 | Emergency (ER) | payer MEDICAID, SELFPAY ==
[2025-06-10 16:39] VITALS: BP 102/60; PULSE 73; RESP 16; TEMP 36.6; O2SAT 100; BMI 17.6
--- OUTSIDE RECORDS SUMMARY | 2025-06-10 16:47 | XMS_ITS | Referral Summary ---
Author Organization [employer] ([place], [place], [place], [place]) Address [address] [place] [address] Care Team Providers Care Power Grader Operator Name Role Phone Unavailable Primary Care [...]
--- OUTSIDE RECORDS SUMMARY | 2025-06-10 16:47 | XMS_ITS | Encounter Summary ---
Author Organization [employer] ([place], [place], [place], [place]) Address [address] [place] [address] Care Team Providers Care Machinist Supervisor Outside Name Role Phone Unavailable Primary Care Provider Unavailabl e Encounter Details Date Type Department Care Team (Late st Contact Info) Description 08/26/2020 Transcribed Document [facility] [place] [facility] [place] [address] ProviderTamra MD [address], [place] [id number] Social History Tobacco Use Types Packs/Day Years Used Date Smoking Tobacco: Never Assessed Comments Unknown Sex and Gender Information Value Date Recorded Sex Assigned at Not on file Legal Sex Female 5:43 PM CDT Gender Identity Not on file Sexual Orientation Not on file documented as of this encounter Miscellaneous Notes * [employer]ner Conversion Note - Historical ProviderMD - 08/26/2020 4:10 PM BARREL INSPECTOR TIGHT Patient: HARRIET GONZALEZ Age: 34 Years Sex: [...] Ms. Gonzalez on her current medication of [place] 7.5 mg q.12h. She denies any side-effects. [...]
--- OUTSIDE RECORDS SUMMARY | 2025-06-10 16:47 | XMS_ITS | Clinical Summary ---
Author Organization [facility] Address [address] [place] [address] Care Team Providers Care Reagent Tender Helper Name Role Phone Pcp, No Primary Care [...] unknown seizure medication. Pharm D will call [facility] to make sure the medication and [...] drink first t edmond in the morning (EYE-CENTER ADMINISTRATOR) to steady your nerves or to get [...] Cancer Screening 2014 [facility]-HPV/Cotest 2014 08/11/2005, 10/24/2004 [id number] Vaccine ( - season) 2024 [facility]-Depression Screening [...] Narrative SUNQUEST - 08/17/2005 9:39 AM EST [facility] MR #: [id number] [facility] [place] [id number] 1985 (Age: 19) FW Collect Date: 08/11/2005 00:00 Receipt Date: 08/14/2005 10:50 Page 1 DEPARTMENT OF PATHOLOGY AND LABORATORY MEDICINE CYTOPATHOLOGY REPORT Email: [email or web address] [phone] ATTENDING MD/Practitioner: Vanessa Rivera MD Service: [facility] Location: [facility] Reported: 08/17/2005 09:39 Collected: 08/11/2005 00:00 INTERPRETATION THIN PREP (CERVICAL/VAGINAL): NEGATIVE FOR INTRAEPITHELIAL LESION OR MALIGNANCY. INFLAMMATORY CHANGE. SATISFACTORY FOR EVALUATION; ENDOCERVICAL/ TRANSFORMATION ZONE COMPONENT PRESENT. Slide scanned and imaged by [employer] ThinPrep Imaging System with manual review of [...] results is suggested (please call Microbiology at [phone] for results). CLINICAL INFORMATION: Menstrual History: Date of Last Menstrual Period: {Not Provided} Other Clinical Conditions: If ASCUS and > 24 years of age, HPV/DNA testing requested. Patient has a history of previous abnormal pap SPECIMEN DESCRIPTION: A: THIN PREP (CERVICAL/VAGINAL) THIN PREP PROCESS CELLULAR ENHANCEMENT ICD: 795.03 (LGSIL) PAPANICOLAOU SMEAR OF CERVIX W/LOW GRADE SQUAMOUS INTRAEPITHELIAL LESION F: A; DX IMAGE 77007, 80085 C\V (PO) SNOMED CODES: A; [id number] [id number] [id number] [id number] In cases where a pathologist has signed out the report, the service has been rendered in part by a resident. The signing pathologist has performed and is responsible for the reported pathologic evaluation. us Bernard Rivera MD LAB PATHOLOGY ORDERABLES Final Result [employer] from Last 3 Months or Most Recently Relevant to Health Maintenance Insurance [employer] Advance Directives * Full Code (Latest Code Status on File) Date Activated Date Inactivated Comments 06/17/2023 11:19 PM 06/20/2023 2:26 PM Question Answer Comments Patient has decision-making capacity? Yes Care Teams Reagent Tender Helper Relationship Specialty Start Date End Date Pcp, No [address] [place] [address] PCP - General Family Medicine 06/18/22
--- OUTSIDE RECORDS SUMMARY | 2025-06-10 16:47 | XMS_ITS | Encounter Summary ---
Author Organization [employer] ([place], [place], [place], [place]) Address [address] [place] [address] Care Team Providers Care Sugar Sampler Name Role Phone Unavailable Primary Care Provider Unavailabl e Encounter Details Date Type Department Care Team (Late st Contact Info) Description 12/28/2019 Transcribed Document [facility] [place] [facility] [place] [address] ProviderTamra MD [address], [place] [address] Social History Tobacco Use Types Packs/Day Years [...] Pain Scale Rating. She has been utilizing [place] 7.5/325 mg. b.i.d. Nursing intake was reviewed. On today's visit this individual is currently 5'3 and weighs 160 lbs. HISTORY: ALLERGIES TO MEDICATION: CIPROFLOXACIN, CONTROL PILLS . SOCIAL HISTORY: Marital status: . Current work status: Works at the [employer]. Current tobacco use: Denied. Illicit drug use: [...]
--- OUTSIDE RECORDS SUMMARY | 2025-06-10 16:47 | XMS_ITS | Clinical Summary ---
Author Organization [employer] ([place], [place], [place], [place]) Address [address] [place] [address] Care Team Providers Care Optical Glass Silverer Name Role Phone Unavailable Primary Care Provider [...]
--- OUTSIDE RECORDS SUMMARY | 2025-06-10 16:47 | XMS_ITS | Encounter Summary ---
Author Organization [employer] ([place], [place], [place], [place]) Address [address] [place] [address] Care Team Providers Care Certified Appliance Service Technician Name Role Phone Unavailable Primary Care Provider Unavailabl e Encounter Details Date Type Department Care Team (Late st Contact Info) Description 04/27/2020 Transcribed Document [facility] [place] Family Medicine [facility] [address] ProviderTamra MD [address] [place], [place] [address] Social History Tobacco Use Types Packs/Day Years [...] of the pain with the use of [place] 7.5/325 mg twice daily dosing. Her pain [...] appointment. DARLIN Foster/manuel Electronically signed by Pratik [facility] Conversion Child And Family Therapist Cerner at 01/30/2023 5:42 PM CDT documented in this encounter Plan of Treatment Not on file documented as of this encounter Visit Diagnoses Not on filedocumented in this encounter
--- OUTSIDE RECORDS SUMMARY | 2025-06-10 16:47 | XMS_ITS | Encounter Summary ---
Author Organization [employer] ([place], [place], [place], [place]) Address [address] [place] [address] Care Team Providers Care Railway Station Manager Name Role Phone Unavailable Primary Care Provider Unavailabl e Encounter Details Date Type Department Care Team (Late st Contact Info) Description 03/04/2020 Transcribed Document [facility] [place] [facility] [place] [address] ProviderTamra MD [address], [place] [id number] Social History Tobacco Use Types Packs/Day Years [...] the clinic in two months. CONNIE Amador/susan documented in this encounter Plan of Treatment Not on file documented as of this encounter Visit Diagnoses Not on filedocumented in this encounter
--- OUTSIDE RECORDS SUMMARY | 2025-06-10 16:47 | XMS_ITS | Encounter Summary ---
Author Organization [employer] ([place], [place], [place], [place]) Address [address] [place] [address] Care Team Providers Care Javascript Software Engineer Name Role Phone Unavailable Primary Care Provider Unavailabl e Encounter Details Date Type Department Care Team (Late st Contact Info) Description 12/22/2020 Transcribed Document [facility] [place] [facility] [place] [address] ProviderTamra MD [address] [place], [place] [id number] Social History Tobacco Use Types Packs/Day Years Used Date Smoking Tobacco: Never Assessed Comments Unknown Sex and Gender Information Value Date Recorded Sex Assigned at Not on file Legal Sex Female 5:43 PM CDT Gender Identity Not on file Sexual Orientation Not on file documented as of this encounter Miscellaneous Notes * Cerner Conversion Note - Tamra ProviderMD - 12/22/2020 2:51 PM AIRBRUSH ARTIST Patient: HARRIET GONZALEZ Age: 35 Years Sex: [...] at this time with the use of [place] 7.5/325 mg that she is taking twice [...]
--- OUTSIDE RECORDS SUMMARY | 2025-06-10 16:47 | XMS_ITS | Encounter Summary ---
Author Organization [employer] ([place], [place], [place], [place]) Address [address] [place] [address] Care Team Providers Care Lean Consultant Name Role Phone Unavailable Primary Care Provider Unavailabl e Encounter Details Date Type Department Care Team (Late st Contact Info) Description 11/26/2019 Transcribed Document [facility] [place] Family Medicine [facility] [place] [address] ProviderTamra MD [address], [place] [address] Social History Tobacco Use Types Packs/Day Years Used Date Smoking Tobacco: Never Assessed Comments Unknown Sex and Gender Information Value Date Recorded Sex Assigned at Not on file Legal Sex Female 5:43 PM CDT Gender Identity Not on file Sexual Orientation Not on file documented as of this encounter Miscellaneous Notes * Cerner Conversion Note - Historical ProviderMD - 11/26/2019 11:46 AM PAINT ROLLER COVERS SUPERVISOR Patient: HARRIET PHILLIPS Age: 34 Years Sex: [...] 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 Current tobacco use: Denies. Illicit drug [...] going to write her a prescription for Ken[place] 7.5 mg that she will utilize sparingly. [...]
--- OUTSIDE RECORDS SUMMARY | 2025-06-10 16:47 | XMS_ITS | Encounter Summary ---
Author Organization [employer] ([place], [place], [place], [place]) Address [address] [place] [address] Care Team Providers Care Piler Name Role Phone Unavailable Primary Care Provider Unavailabl e Encounter Details Date Type Department Care Team (Late st Contact Info) Description 06/14/2020 Transcribed Document [facility] [place] Family Medicine [facility] [place] [address] ProviderTamra MD [address], [place] [address] Social History Tobacco Use Types Packs/Day Years [...] 100% pain relief at this time with [place] 7.5/325 mg twice daily dosing. Nursing intake was reviewed and noted on today's visit. VITAL SIGNS: Vital signs are reviewed today. Height 5???3?? , weight 160 lbs. HISTORY: Allergies to medications: Ciprofloxacin. Social History: Marital status: She is . 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 Illicit drug use: Denies. Current tobacco [...]
--- OUTSIDE RECORDS SUMMARY | 2025-06-10 16:47 | XMS_ITS | Clinical Summary ---
Author Organization [facility] Address [address] [place] [address] Care Team Providers Care Retail Loan Originator Name Role Phone Gila Tobias APRN Primary Care Provider [phone] Allergies No known active allergies Medications HYDROcodone-acet [...] this topic Insurance [employer] Care Teams Retail Loan Originator Relationship Specialty Start Date End Date Gila Tobias APRN [address] [place] [address] PCP - General Nurse Practitioner 06/09/24
--- NOTE | 2025-06-10 16:56 | CT_ITS ---
PROCEDURE INFORMATION: Exam: CT Abdomen And Pelvis With Contrast Exam date and time: 06/10/2025 7:03 PM Age: 39 years old Clinical indication: Abdominal pain; Flank; Left; Additional info: Left flank pain TECHNIQUE: Imaging protocol: Computed tomography of the abdomen and pelvis with contrast. Radiation optimization: All CT scans at this facility use at least one of these dose optimization techniques: automated exposure control; mA and/or kV adjustment per patient size (includes targeted exams where dose is matched to clinical indication); or iterative reconstruction. Contrast material: ISOVUE; Contrast volume: 75 ml; Contrast route: IV; COMPARISON: CT CHEST WO CON 05/28/2025 9:43 PM FINDINGS: Tubes, catheters and devices: Bilateral Essure tubes which appears satisfactory in position. Lungs: Lung bases are clear. Liver: Normal. No mass. Gallbladder and biliary ducts: Normal. No calcified stones. No ductal dilation. Pancreas: Normal. No ductal dilation. Spleen: Normal. No splenomegaly. Adrenal glands: Normal. No mass. Kidneys and ureters: Normal. No hydronephrosis. Stomach and bowel: Unremarkable. No obstruction. No mucosal thickening. Appendix: Appendix is normal. No evidence of appendicitis. Intraperitoneal space: Small amount of fluid dense free fluid. Vasculature: Unremarkable. No abdominal aortic aneurysm. Lymph nodes: Unremarkable. No enlarged lymph nodes. Urinary bladder: Unremarkable as visualized. Reproductive: IUD appears malpositioned located in the uterine body and lower uterine segment. Additionally the left wing of the IUD may extend into the myometrium. Bones/joints: Old [id number] wedge-shaped T12 compression fracture similar to prior chest CT. Soft tissues: Unremarkable. IMPRESSION: 1. Malpositioned IUD as detailed above. 2. Small amount of nonspecific pelvic free fluid. 3. No other acute abnormalities.
[2025-06-10 17:01] VITALS: BP 102/63; PULSE 61; O2SAT 99
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
--- NOTE | 2025-06-10 17:23 | ECG_ITS ---
APPROVED REPORT Exam: Resting ECG HR:51 bpm ECG Measurements Heart Rate 51 AXES MN 162 P 80 QRSd 86 QRS 81 QT 439 T 75 QTc 417 Conclusion SINUS BRADYCARDIA BORDERLINE ECG UNCONFIRMED REPORT Electronically signed by : RAJI BELTRAN, 06/11/2025 06:56:36
[2025-06-10] MEDS: KETOROLAC 30MG/ML VIAL 30 MG IV (17:25)
[2025-06-10] MEDS: ORPHENADRINE CITRATE 60MG/2ML VIAL 60 MG IV (17:25)
[2025-06-10 17:31] LABS: Hematocrit 36.2 % (37.0-47.0); Hemoglobin 12.0 g/dL (12.2-16.2); Immature Granulocytes % 0.1 %; Mean Corpuscular HGB Conc 33.1 g/dL (31.8-35.4); Mean Corpuscular Hemoglobin 30.8 pg (27.0-31.2); Mean Corpuscular Volume 92.8 fl (81-99); Nucleated Red Blood Cells % 0 %; Platelet Count 253 K/mm3 (142-424); Red Blood Count 3.90 M/mm3 (4.20-5.40); Red Cell Distribution Width-SD 47.2 fL; White Blood Count 7.2 K/mm3 (4.8-10.8)
[2025-06-10 17:57] LABS: Albumin Level 4.3 g/dl (3.5-5.0); Chloride 115 mmol/L (98-107); Sodium 144 mmol/L (136-145)
[2025-06-10 17:58] LABS: Potassium 3.8 mmoL/L (3.5-5.1)
[2025-06-10 17:59] LABS: Lipase 150 U/L (23-300); Magnesium 1.8 mg/dl (1.6-2.3)
[2025-06-10 18:00] LABS: Alanine Aminotransferase 26 U/L (12-78); Albumin/Globulin Ratio 1.6 (1.1-1.8); Alkaline Phosphatase 81 U/L (38-126); Anion Gap 12.8 mEq/L (5-15); Aspartate Amino Transferase 36 U/L (14-36); Bilirubin,Total 0.4 mg/dl (0.2-1.3); Blood Urea Nitrogen 13 mg/dl (7-17); Carbon Dioxide 20 mmol/L (22.0-30.0); Creatinine Clearance Estimated 76 mL/min (50-200); Creatinine,Serum 0.70 mg/dl (0.52-1.04); Estimated Glomerular Filt Rate 93 ml/min (>60); GFR (African American) 112 ML/MIN (>60); Globulin 2.7 g/dL (1.3-3.2); Total Protein,Serum 7.0 g/dl (6.3-8.2)
[2025-06-10 18:01] LABS: Calcium 9.0 mg/dl (8.4-10.2); Glucose 102 mg/dl (74-100)
[2025-06-10 18:14] LABS: Microscopic, Urine URINE MICROSCOPIC (MICROSCOPIC)
[2025-06-10 18:18] LABS: Bilirubin,Urine Negative (Negative); Color,Urine YELLOW (Yellow); Glucose,Urine (UA) Negative (Negative); Ketones,Urine Negative (Negative); Leukocyte Esterase,Urine Negative (Negative); PH,Urine 8.5 (5.0-8.5); Protein,Urine Negative (Negative); Specific Gravity, Urine 1.015 (1.005-1.030); Urobilinogen,Urine 0.2 EU/dl (0.2)
[2025-06-10 18:26] LABS: Troponin I < 0.01 ng/ml (0.00-0.034)
[2025-06-10 18:31] LABS: Amorphous Sediment,Urine 3+ /lpf; Bacteria,Urine 2+ /lpf; WBC,Urine Occasional #/hpf (0-3)
[2025-06-10 18:47] LABS: Urine Pregnancy, HCG Qual. Negative (Negative)
[2025-06-10] MEDS: SODIUM CHLORIDE 0.9% 10ML SYR (RAD ONLY) 10 ML IV (19:04)
[2025-06-10] MEDS: IOPAMIDOL-370 (76%);100ML BOTTLE 75 ML IV (19:04)
[2025-06-10 21:02] LABS: Troponin I < 0.01 ng/ml (0.00-0.034)
[2025-06-10 21:10] LABS: HCG Qualitative, Serum Negative (Negative)
[2025-06-10 21:24] VITALS: BP 102/63; PULSE 52; RESP 16; TEMP 36.8; O2SAT 97
== END 2025-06-10 22:34 | disposition home or self-care (01) ==
PROVIDERS: Nurse Practitioner; Emergency Provider Student in an Organized Health Care Education/Training Program
DX: R10.32 Left lower quadrant pain (principal); R10.12 Left upper quadrant pain; R00.1 Bradycardia, unspecified
CPT/HCPCS: 74177; 80053; 81001; 81025; 83690; 83735; 84484; 84703; 85025; 87086; 93005; 96374; 96375; 99283; 99285; J1885; J2360; Q9967